=== PATIENT | female | born 1995 | race Caucasian/White ===

== ENCOUNTER 2017-09-04 14:43 | Emergency (ER) | payer OTHER ==
[~2017-09-04] VITALS: Ht 172.7 cm; Wt 74.8 kg
[~2017-09-04 14:43] MED LIST: CLARITIN10 MG PO; MEDROL DOSEPAK4 MG PO
[2017-09-04 15:00] LABS: BASO % 0.2 % (0.0-1.0); EOS # 0.1 10*3/uL (0.0-0.4); EOS % 0.4 % (1.0-4.0); HEMATOCRIT 40.4 % (37.0-47.0); HEMOGLOBIN 12.8 g/dl (12.0-16.0); LYMPH # 1.6 10*3/uL (1.3-4.4); LYMPH % 13.1 % (27.0-41.0); MEAN CELL VOLUME 82.4 fl (81.0-99.0); MEAN CORPUSCULAR HGB 26.1 pg (27.0-31.0); MEAN CORPUSCULAR HGB CONC 31.7 g/dl (33.0-37.0); MEAN PLATELET VOLUME 9.4 fl (9.6-12.3); MONO # 0.7 10*3/uL (0.1-1.0); MONO % 6.1 % (3.0-9.0); NEUT # 9.7 10*3/uL (2.3-7.9); NEUT % 79.8 % (47.0-73.0); PLATELET COUNT AUTOMATED 293 10*3/uL (130-400); RED CELL DISTRI WIDTH 14.8 % (0-14.5); WHITE BLOOD COUNT 12.1 10*3/uL (4.8-10.8)
[2017-09-04 15:07] LABS: BILIRUBIN NEGATIVE (NEGATIVE); BLOOD NEGATIVE (NEGATIVE); CLARITY SL CLOUDY (CLEAR); COLOR YELLOW (YELLOW); GLUCOSE NEGATIVE (NEGATIVE); KETONE 1+ (NEGATIVE); LEUKO ESTERASE 1+ (NEGATIVE); NITRITE NEGATIVE (NEGATIVE); UROBILINOGEN 0.2 E.U./dl (0.2-1.0)
[2017-09-04 15:15] LABS: BACTERIA 2+; WBC 41-50 wbc/hpf (0-5)
[2017-09-04 15:19] LABS: ALBUMIN 3.7 gm/dl (3.1-4.5); ALKALINE PHOSPHATASE 71 U/L (45-117); BUN 17 mg/dl (7-24); CHLORIDE 102 mmol/L (98-107); CREATININE 0.79 mg/dL (0.55-1.02); SGOT/AST 19 IU/L (3-35); SGPT/ALT 127 U/L (12-78); SODIUM 137 mmol/L (136-145); TOTAL PROTEIN 8.1 gm/dL (6.4-8.2)
[2017-09-04] MEDS ORDERED: ZOFRAN4 MG PO ×3 (17:04→17:12)
[2017-09-04] MEDS ORDERED: CIPRO500 MG PO ×3 (17:04→17:12)
[2017-09-04] MEDS ORDERED: PYRIDIUM200 M1 PO ×3 (17:04→17:12)
== END 2017-09-04 17:08 | disposition home or self-care (01) ==
LOC: ED 14:43
PROVIDERS: Nurse Practitioner Family
DX: N12 Tubulo-interstitial nephritis, not specified as acute or chronic (principal); R03.0 Elevated blood-pressure reading, without diagnosis of hypertension